=== PATIENT | male | born 1955 | race Hispanic/Latino ===

== ENCOUNTER → 2025-02-09 | Outpatient (CLI) | payer OTHER, MEDICAID ==
[~2025-02-09] MED LIST: GADOTERATE MEGLUMINE 10 MMOL/20 ML VIAL IV ONE
--- NOTE | 2025-02-10 11:59 | HMCIMG ---
EXAM: MR Brain without and with intravenous contrast CLINICAL HISTORY: Tremor unspecified TECHNIQUE: An MRI resonance image, multiplanar, multi-sequence, of the brain was obtained with intravenous contrast. COMPARISON: None provided. FINDINGS: A well-defined 3.2 x 3.6 x 4.3 cm mass lesion with heterogeneous post-contrast enhancement in the right posterior parietal lobe in parafalcine location. Marked perilesional edema around the lesion with mass effect in the form of effacement of the right lateral ventricle and mild midline shift toward the left. Patchy area of restricted diffusion with reversal on ADC in the lesion. Diffuse cerebral atrophy with prominent cortical sulci, basal cisterns, and bilateral sylvian fissures. T2 and FLAIR hyperintensities in the bilateral periventricular white matter represent chronic microangiopathic ischemic changes No evidence of acute cortical infarction. No hydrocephalus. No abnormal extra-axial fluid collection is present. The marrow signal within the skull base and calvarium is intact. The mastoid air cells are clear. Bilateral chronic maxillary sinusitis. 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 Age-related cerebral atrophy, chronic microangiopathic ischemic changes MR spectroscopy, perfusion, or biopsy may be indicated for definitive diagnosis. /[place]
== END | disposition home or self-care (01) ==
LOC: RAH 09:14
PROVIDERS: ATTEND Family Medicine
DX: I67.82 Cerebral ischemia (principal); J32.0 Chronic maxillary sinusitis; G31.9 Degenerative disease of nervous system, unspecified; R90.82 White matter disease, unspecified; R25.1 Tremor, unspecified
CPT/HCPCS: 70553; A9575